=== PATIENT | female | born 1965 | race Caucasian/White ===

== ENCOUNTER → 2024-08-31 | Outpatient (CLI) | payer BC, SELFPAY ==
[2024-08-31 08:53] LABS: Alanine Aminotransferase 18 U/L (10-49); Albumin, Serum 4.5 gm/dL (3.5-5.0); Alkaline Phosphatase 66 U/L (46-116); Anion Gap 5 (7-16); Aspartate Amino Transferase 24 U/L (0-34); BUN/Creatinine Ratio 11 Ratio (12-20); Bilirubin,Total 1.1 mg/dL (0.3-1.2); Blood Urea Nitrogen 12 mg/dL (9-23); Calcium 9.9 mg/dL (8.3-10.6); Calcium (Corrected) 9.9 mg/dL (8.5-10.1); Carbon Dioxide 28.8 mMol/L (20.0-31.0); Chloride 107 mMol/L (98-107); Creatinine (Component) 1.1 mg/dL (0.6-1.3); Free T4 (Free Thyroxine) 1.29 ng/dL (0.89-1.76); Globulin 2.3 gm/dL (2.3-3.5); Glucose 99 mg/dL (74-106); Osmolality,Calculated 280 (275-295); Potassium 4.1 mMol/L (3.4-5.1); Sodium 141 mMol/L (136-145); Thyroid Stimulating Hormone 3.71 uIU/mL (0.55-4.78); Total Protein 6.8 gm/dL (5.7-8.2); eGFR 59 See Note
[2024-09-07 06:50] LABS: T3,Total* 93 ng/dL (76-181); Thyroid Peroxidase Antibodies* <1 IU/mL (<9)
== END | disposition home or self-care (01) ==
LOC: COPL 07:04
PROVIDERS: PCP Nurse Practitioner; Referring Provider Nurse Practitioner; Visit Provider Nurse Practitioner
DX: E03.9 Hypothyroidism, unspecified (principal); E87.1 Hypo-osmolality and hyponatremia
CPT/HCPCS: 36415; 80053; 84439; 84443; 84480; 86376

== ENCOUNTER → 2025-02-19 | Outpatient (CLI) | payer BC, SELFPAY ==
[2025-02-19 10:31] LABS: Basophils # (Auto) 0.1 Thou/mm3 (0.0-0.2); Basophils % (Auto) 1 % (0-2.5); Eosinophils # (Auto) 0.2 Thou/mm3 (0.0-0.5); Eosinophils % (Auto) 3 % (0-10); Hemoglobin 14.4 g/dL (12.0-16.0); Immature Granulocytes % (Auto) 0 % (0-0); Immature Granulocytes Auto 0.01 Thou/mm3 (0.00-0.00); Lymphocytes # (Auto) 1.9 Thou/mm3 (1.0-4.8); Lymphocytes % (Auto) 34 % (10-50); Mean Corpuscular HGB Conc 32.7 g/dl (31.0-37.0); Mean Corpuscular Hemoglobin 31.4 pg (25.0-35.0); Mean Corpuscular Volume 96 fL (80-100); Monocytes # (Auto) 0.5 Thou/mm3 (0.0-0.8); Monocytes % (Auto) 9 % (0-12); Neutrophils # (Auto) 2.9 Thou/mm3 (1.8-7.7); Neutrophils % (Auto) 53 % (37-80); Nucleated Red Blood Cell % 0 /100 WBC (0); Platelet Count 259 Thou/mm3 (140-440); RDW Standard Deviation 47.6 fL (36.4-46.3); Red Blood Count 4.58 Miln/mm3 (4.00-5.20); White Blood Count 5.5 Thou/mm3 (3.6-11.0)
[2025-02-19 10:49] LABS: Follicle Stimulating Hormone 132.33 mIU/mL (See Note)
[2025-02-19 10:54] LABS: Alanine Aminotransferase 16 U/L (10-49); Albumin, Serum 4.6 gm/dL (3.5-5.0); Albumin/Globulin Ratio 1.8 (1.2-2.2); Alkaline Phosphatase 68 U/L (46-116); Anion Gap 9 (7-16); Aspartate Amino Transferase 28 U/L (0-34); BUN/Creatinine Ratio 16 Ratio (12-20); Blood Urea Nitrogen 16 mg/dL (9-23); C-Reactive Protein < 0.5 mg/dL (0.0-0.9); Calcium 9.4 mg/dL (8.3-10.6); Calcium (Corrected) 9.4 mg/dL (8.5-10.1); Carbon Dioxide 30.1 mMol/L (20.0-31.0); Cardiac Risk Estimate 2.5 RATIO (3.7-5.6); Chloride 104 mMol/L (98-107); Cholesterol 172 mg/dL (132-200); Free T4 (Free Thyroxine) 1.26 ng/dL (0.89-1.76); Globulin 2.5 gm/dL (2.3-3.5); Glucose 88 mg/dL (74-106); HDL Cholesterol 69 mg/dL (40-60); LDL Cholesterol,Calculated 91 mg/dL (0-130); Osmolality,Calculated 285 (275-295); Potassium 4.2 mMol/L (3.4-5.1); Sodium 143 mMol/L (136-145); Thyroid Stimulating Hormone 2.07 uIU/mL (0.55-4.78); Total Protein 7.1 gm/dL (5.7-8.2); Triglycerides 61 mg/dL (30-150); eGFR > 60 See Note
[2025-02-19 12:02] LABS: Sed Rate (ESR) 6 mm/hr (0-30)
[2025-03-08 07:03] LABS: ANA Screen, IFA POSITIVE (NEGATIVE); Estradiol, Ultrasensitive* 3 pg/mL; Progesterone,LC/MS* <0.1 ng/mL; T3,Total* 116 ng/dL (76-181)
== END | disposition home or self-care (01) ==
LOC: COPL 09:00
PROVIDERS: PCP Family Medicine; Referring Provider Nurse Practitioner; Visit Provider Nurse Practitioner
DX: E03.9 Hypothyroidism, unspecified (principal); R76.0 Raised antibody titer; G47.00 Insomnia, unspecified; F32.A Depression, unspecified; F43.0 Acute stress reaction; E78.5 Hyperlipidemia, unspecified; N95.1 Menopausal and female climacteric states; R25.2 Cramp and spasm
CPT/HCPCS: 36415; 80053; 80061; 82670; 83001; 83002; 83735; 84144; 84439; 84443; 84480; 85025; 85652; 86038; 86140

== ENCOUNTER → 2025-08-10 | Outpatient (CLI) | payer BC, SELFPAY ==
--- NOTE | 2025-08-10 16:05 | XR_ITS ---
EXAMINATION: Cervical spine 3 views TECHNIQUE: AP lateral coned AP odontoid cervical spine 3 views Date and time: August 10, 2025, 1610 hours INDICATION: Neck pain beginning 3 months ago. FINDINGS: Satisfactory alignment cervical vertebral bodies. No cervical fracture. Advanced disc narrowing C4-C5, C5-C6, C6-C7 IMPRESSION: Advanced degenerative disc disease C4-C5, C5-C6, C6-C7
--- NOTE | 2025-08-10 16:05 | XR_ITS ---
Examination: Foot, right, 3 views Technique: AP, oblique, lateral views foot, 3 views Date and time of exam: August 10, 2025, 1627 hours INDICATIONS: Right foot pain beginning 3 weeks ago. FINDINGS: Moderate osteopenia. Mild narrowing first metatarsophalangeal joint No fracture or dislocation No cortical bone destruction 4 mm plantar bony calcaneal spur IMPRESSION: 4 mm plantar bony calcaneal spur
== END | disposition home or self-care (01) ==
PROVIDERS: PCP Nurse Practitioner; Referring Provider Nurse Practitioner; Visit Provider Nurse Practitioner
DX: M77.31 Calcaneal spur, right foot (principal); M50.321 Other cervical disc degeneration at C4-C5 level
CPT/HCPCS: 72040; 73630